=== PATIENT | female | born 1925 | race Caucasian/White ===

== ENCOUNTER 2016-04-18 16:45 | Emergency (ER) | payer OTHER ==
[~2016-04-18] VITALS: Ht 162.6 cm; Wt 50.0 kg
[2016-04-18] MEDS ORDERED: SOD CHLORIDE 0.9% 1,000 ML IV STA (16:48)
[2016-04-18 17:00] VITALS: Ht 162.6 cm; Wt 50.0 kg
[2016-04-18 17:20] LABS: ADD SCAN DIFF NO
[2016-04-18 17:22] LABS: BASOPHILS % 0.3 % (0.0-2.0); EOSINOPHILS # 0.4 10^3/ul (0.0-0.5); HEMATOCRIT 30.7 % (37.0-47.0); HEMOGLOBIN 9.6 g/dl (12.0-16.0); LYMPHOCYTES # 2.2 10^3/ul (0.8-2.9); LYMPHOCYTES % 24.7 % (15.0-51.0); MEAN CORPUSCULAR HEMOGLOBIN 30.9 pg (29.0-33.0); MEAN CORPUSCULAR HGB CONC 31.3 g/dl (32.0-37.0); MEAN CORPUSCULAR VOLUME 98.7 fl (82.0-101.0); MEAN PLATELET VOLUME 11.6 fl (7.4-10.4); MONOCYTE # 0.7 10^3/ul (0.3-0.9); MONOCYTES % 7.6 % (0.0-11.0); NEUTROPHIL # 5.7 10^3/ul (1.6-7.5); NEUTROPHILS % 63.2 % (39.0-77.0); PLATELET COUNT 226 10^3/UL (140-415); RED BLOOD COUNT 3.11 10^6/ul (4.20-5.40); RED CELL DISTRIBUTION WIDTH 12.9 % (11.5-14.5)
[2016-04-18 17:38] LABS: CHLORIDE 107 mmol/L (97-110)
[2016-04-18 17:39] LABS: SODIUM 142 mmol/L (135-144)
[2016-04-18 17:41] LABS: CREATININE 2.06 mg/dl (0.44-1.00)
[2016-04-18 17:42] LABS: ANION GAP 18 (8-16); BLOOD UREA NITROGEN 52 mg/dl (7-20); CALCIUM 9.2 mg/dl (8.4-10.2); CARBON DIOXIDE 22 mmol/L (21-31); GLUCOSE 192 mg/dl (70-220)
--- NOTE | 2016-04-18 17:48 | RADRPT ---
PROCEDURE: XR Chest. CLINICAL INDICATION: Syncope and shortness of breath. TECHNIQUE: Single frontal view. COMPARISON: None. FINDINGS: There is mild atelectasis at the lung bases. The lungs are otherwise clear. The heart size is normal. There is calcification in the aorta consistent with atherosclerosis. There is no pleural effusion. There is no pneumothorax. IMPRESSION: 1. Mild atelectasis at the lung bases. 2. Atherosclerosis. 3. Otherwise unremarkable chest x-ray. RPTAT: QQ .Carlos Boyd MD, MD Date Time Electronically viewed and signed by .Carlos Boyd MD, MD on 04/18/2016 17:48 .R/
[2016-04-18] MEDS ORDERED: SYN112 PO (17:51)
[2016-04-18] MEDS ORDERED: INSU100C SQ (17:51)
[2016-04-18] MEDS ORDERED: BENA10TA48 PO (17:52)
[2016-04-18] MEDS ORDERED: LOVA20TA PO (17:53)
[2016-04-18] MEDS ORDERED: AMLO-147 PO (17:53)
[2016-04-18] MEDS ORDERED: FER325 PO (17:54)
[2016-04-18] MEDS ORDERED: CYAN500T46 PO (17:55)
[2016-04-18] MEDS ORDERED: CYAN100080 PO (17:56)
[2016-04-18] MEDS ORDERED: ASPI-664 PO (17:57)
[2016-04-18] MEDS ORDERED: GABA300C16 PO (17:57)
[2016-04-18] MEDS ORDERED: SOLI10TA5 PO (17:58)
[2016-04-18] MEDS ORDERED: PANT40TA4 PO (17:59)
[2016-04-18] MEDS ORDERED: CALC-77 PO (18:00)
[2016-04-18] MEDS ORDERED: CRAN500T2 PO (18:00)
[2016-04-18] MEDS ORDERED: MULT-105 PO (18:02)
[2016-04-18] MEDS ORDERED: FURO40TA4 PO (18:02)
[2016-04-18] MEDS ORDERED: POTA10TA15 PO (18:04)
[2016-04-18 18:06] LABS: INR 1.01; PROTIME 13.3 Sec (12.2-14.2)
[2016-04-18 18:09] LABS: PARTIAL THROMBOPLASTIN TIME 24.4 Sec (25.0-35.0)
[2016-04-18 18:15] LABS: TROPONIN-I < 0.012 ng/ml (0.00-0.12)
[2016-04-18 19:03] LABS: ADD UMIC YES; URINE BILIRUBIN (Dip) NEGATIVE (NEGATIVE); URINE BLOOD (Dip) 1+ (NEGATIVE); URINE COLOR LT. YELLOW (YELLOW); URINE GLUCOSE (Dip) NEGATIVE (NEGATIVE); URINE KETONES (Dip) NEGATIVE (NEGATIVE); URINE LEUKOCYTE ESTERASE (Dip) 2+ (NEGATIVE); URINE NITRITE (Dip) NEGATIVE (NEGATIVE); URINE TOTAL PROTEIN (Dip) 2+ (NEGATIVE); URINE UROBILINOGEN (Dip) 0.2 E.U./dL (0.1-1.0)
[2016-04-18 19:22] LABS: BACTERIA,URINE MODERATE; SQUAMOUS EPITHELIAL CELL,UR MODERATE; URINE RBCS 0-2 /HPF (0)
--- NOTE | 2016-04-18 19:29 | RADRPT ---
PROCEDURE: CT Brain without contrast. CLINICAL INDICATION: Syncope. TECHNIQUE: A CT of the brain was performed utilizing axial sections from the skull base through th e vertex without contrast. Multiplanar re-formations were generated. Images were reviewed on a high- resolution PACS workstation. CTDIvol: 36.21 mGy. DLP: 559.84 mGy-cm. One or more of the following dose reduction techniques were used: - Automated exposure control. - Adjustment of the mA and/or kV according to patient size. - Use of iterative reconstruction technique. COMPARISON: None available FINDINGS: There is moderate generalized volume loss. No hydrocephalus is seen. There is no mass effect. No ac clark's point intracranial hemorrhage is identified. There is no extra-axial collection. No CT evidence of ac clark's point infarction is identified. A chronic lacunar infarction is identified in the left basal ganglia r egion. There is patchy low attenuation in the supratentorial white matter, a nonspecific finding whi ch most likely represents the sequela of moderate chronic microvascular ischemic disease. There are moderate atherosclerotic arterial calcifications. There is no significant mucosal disease in the paranasal sinuses. The visualized mastoid air cells a re clear. The ossesous structures are unremarkable. The extracranial soft tissues are unremarkable. The patient is status post bilateral lens replacement surgery. IMPRESSION: 1. No acute intracranial pathology. 2. Moderate generalized volume loss. 3. Moderate chronic microvascular ischemic changes. 4. Chronic lacunar infarction in the left basal ganglia region. 5. Atherosclerotic arterial calcifications. RPTAT: HTAR .David Hayes MD, Date Time Electronically viewed and signed by .David Hayes MD, on 04/18/2016 19:29 .R/
[2016-04-18] MEDS ORDERED: SOD CHLORIDE 0.9% 500 ML IV ONE (20:00)
[2016-04-18] MEDS ORDERED: CEFTRIAXONE 1 GM/50 ML (PMX) 50 ML IVPB ONE (20:00)
[2016-04-18] MEDS ORDERED: NITR-58 PO (20:57)
[2016-04-18] MEDS ORDERED: BACTDS PO (20:57)
[2016-04-18] MEDS ORDERED: POLY17PO6 PO (21:06)
[2016-04-18] MEDS ORDERED: MAGN296S40 PO (21:06)
[2016-04-18 21:24] VITALS: BP 174/85; PULSE 78; RESP 16; TEMP 98.9
[2016-04-18] MEDS ORDERED: FLUCONAZOLE 150 MG TAB PO ONE (21:30)
--- NOTE | 2016-05-23 04:48 | ERD ---
DATE OF SERVICE: 04/18/2016 HISTORY OF PRESENT ILLNESS: This 89-year-old female comes along with family with an episode where she was seated and she dozed off. Family was not able to wake her up immediately. She had also been feeling lightheaded. She did not fall. She denies any pain currently, states that she feels well. She denied any chest pain, shortness of breath, or headache at the time. She also suffered a syncopal episode while she was in the shower; however, she did not fall during this episode either. She denies injury to any part of her body. She does admit to having increase in urinary frequency. REVIEW OF SYSTEMS: A 10-point review of systems is negative except as in the HPI. PAST MEDICAL HISTORY: Hypertension, hypothyroidism, diabetes, GERD. PAST SURGICAL HISTORY: Denies. FAMILY HISTORY: Noncontributory to advanced age. SOCIAL HISTORY: Denies tobacco, alcohol or other drugs. Lives with family. PHYSICAL EXAMINATION VITAL SIGNS: Temperature 98.9, pulse 79, blood pressure 155/94, respirations 20 , oxygen saturation 96% on room air. GENERAL: No acute distress. HEENT: Normocephalic, atraumatic. PERRL, EOMI. NECK: Supple. No meningismus or JVD, no midline tenderness. Full range of motion without pain. CARDIAC: Regular rate and rhythm. No murmurs. LUNGS: Clear to auscultation bilaterally. ABDOMEN: Soft, nontender, nondistended. No masses. EXTREMITIES: No cyanosis, clubbing or edema, no deformities or lesions. NEUROLOGIC: Alert and oriented x3, cranial nerves II through XII intact, no cerebellar deficits, no focal deficits, normal gait. SKIN: No rashes or other lesions. DIAGNOSTIC DATA: EKG interpretation: Normal sinus rhythm, rate of 72, borderline left axis deviation, no ST or T-wave changes concerning for acute ischemia, normal intervals. Normal EKG. school lunch monitor interpretation: Normal sinus rhythm without arrhythmia. Imaging interpretation: Head CT interpretation by myself: I see no acute process, no hemorrhage, no masses, no midline shift, no skull fractures. Chest x-ray interpretation by myself: I see no acute process, no widened mediastinum, no pneumothorax, no pulmonary edema, no infiltrates, no bony abnormalities. LABORATORY DATA: CBC significant for mild anemia with hemoglobin of 9.6. This is a normocytic anemia and here are no other values for comparison. White blood cell count and platelets are normal. Chemistry is significant for elevated BUN and creatinine of 52 and 2.06. Of note, family says that patient does have a history of mild kidney problems. Troponin is negative. Coagulation studies are within normal limits with an INR of 1.01. Urinalysis positive for urinary tract infection with 2+ leukocyte esterase, 25 to 50 white blood cells per high power field. EMERGENCY DEPARTMENT COURSE AND MEDICAL DECISION MAKING: This high functioning elderly female with excellent family support has a urinary tract infection. I call this a complicated UTI that is complicated by her age. She had 2 brief syncopal episodes without injury earlier in the day. Contributing factor to this was likely her urinary tract infection. She was given a liter of normal saline and treated with 1 gram of Rocephin in the emergency room. She did remain asymptomatic throughout her stay in the emergency room and was completely alert and oriented with a normal neurological exam, negative EKG for cardiac ischemia, negative troponin, and a negative head CT. The patient was offered admission. The patient did not want to stay in the hospital as there was not a good reason and her family seconded her decision and asked that she could take her home. Because of shareddecision making and the negative workup for cardiac or cerebral abnormalities and asymptomatic state, I still cautioned the family that patient could be admitted for fluid hydration for her possible acute kidney injury in the face of urinary tract infection. They still preferred to go home. I am discharging her with both Bactrim and Macrobid for this course was complicated urinary tract infection. She mentioned she is constipated. I am also giving her some magnesium citrate to try to help with this. Return precautions given to the ER with primary care followup in 2 to 3 days. DISCHARGE DIAGNOSES: 1. Complicated urinary tract infection. 2. Renal insufficiency. 3. Constipation. 4. Normocytic anemia. 5. Syncope. DISPOSITION: Home in stable condition. Dictated By: AIDE ANTONIO/REMBERTO Conf#: [id number] DID#: [id number] MTDD
== END 2016-04-18 21:24 | disposition home or self-care (01) ==
LOC: E/R 16:45
DX: N39.0 Urinary tract infection, site not specified (principal); N28.9 Disorder of kidney and ureter, unspecified; K59.00 Constipation, unspecified; D64.9 Anemia, unspecified; I10 Essential (primary) hypertension; E11.9 Type 2 diabetes mellitus without complications; E03.9 Hypothyroidism, unspecified
CPT/HCPCS: 70450; 71010; 80048; 81001; 82962; 84484; 85025; 85610; 85730; 93005; J0696; J7030; J7040; 36415; 81003; 96374